=== PATIENT | female | born 1990 | race Caucasian/White ===

== ENCOUNTER 2016-11-24 16:18 | Emergency (ER) | payer MEDICAID ==
[~2016-11-24] VITALS: Ht 152.4 cm; Wt 55.8 kg
[2016-11-24 16:51] VITALS: BP_SYST 139
--- NOTE | 2016-11-24 17:59 | NUR ---
Called [facility], spoke with [employer], states that they will not send a unit out for report if the patient does choose to file a report she will have to come into [facility].
--- NOTE | 2016-11-24 18:39 | NUR ---
Patient seen by Dr. Beasley in triage.
--- NOTE | 2016-11-24 18:40 | NUR ---
Patient given written and verbal discharge instructions and verbalizes understanding. ER MD discussed with patient the results and treatment provided. Given copies of tests performed in ER. Patient in stable condition. ID arm band removed. Rx of Zofran, Motrin given. Patient educated on pain management and to follow up with PMD. Pain Scale 3/10. Opportunity for questions provided and answered.
== END 2016-11-24 18:40 | disposition home or self-care (01) ==
LOC: SED 16:18
DX: S06.9X9A Unspecified intracranial injury with loss of consciousness of unspecified duration, initial encounter (principal); J34.2 Deviated nasal septum; J45.909 Unspecified asthma, uncomplicated; Y04.0XXA Assault by unarmed brawl or fight, initial encounter; Y93.89 Activity, other specified; Y92.89 Other specified places as the place of occurrence of the external cause; Y99.8 Other external cause status
CPT/HCPCS: 70450-TC; 70486-TC; 99284

== ENCOUNTER 2017-04-26 02:40 | Emergency (ER) | payer MEDICAID ==
[~2017-04-26] VITALS: Ht 152.4 cm; Wt 54.4 kg
--- NOTE | 2017-04-26 02:55 | NUR ---
Called patient for triage and bed placement. Patient not in waiting room. Admitting staff stated she notified them she would be "going outside" and would return shortly. Patient not found outside ED doorway. Will attempt again in 15 min. Admitting staff will notify ED staff design engineer when patient returns.
[2017-04-26 02:57] VITALS: BP_SYST 137
--- NOTE | 2017-04-26 03:13 | NUR ---
Placed in room 05. Side rails up. Report given to RM Zacarias.
--- NOTE | 2017-04-26 03:15 | NUR ---
Patient arrived to ED a/o x 4 with c/o left lower jaw pain. Patient states she has been having a tooth ache for the past couple days. Reports 10/ pain. C/O new onset N/V. Denies fever. Patient was seen at urgent care earlier today. Reports recieiving pain shot, unknown what med. Will continue to monitor.
--- NOTE | 2017-04-26 03:25 | NUR ---
ED MD Swartz at bedside for medical evaluation.
[2017-04-26] MEDS ORDERED: DIPHENHYDRAMINE INJ 50 MG/ML VIAL IM ONE (03:45)
[2017-04-26] MEDS ORDERED: AMOXICILLIN 500 MG CAPSULE PO ONE (03:45)
[2017-04-26] MEDS ORDERED: MORPHINE SULFATE 10 MG/ML VIAL IVP ONE (03:45)
--- NOTE | 2017-04-26 03:55 | NUR ---
Medicated per ED MD orders.
[2017-04-26] MEDS ORDERED: MORPHINE SULFATE 10 MG/ML VIAL IM ONE (04:00)
--- NOTE | 2017-04-26 04:00 | NUR ---
ED MD Flahertyek at bedside for reassessment.
[2017-04-26 04:10] VITALS: BP_SYST 133
--- NOTE | 2017-04-26 04:10 | NUR ---
Patient given written and verbal discharge instructions and verbalizes understanding. ER MD discussed with patient the results and treatment provided. Patient in stable condition. ID arm band removed. Rx of amoxicillin given. Patient educated on pain management and to follow up with PMD. Pain Scale 2/10 tolerable for patient. Opportunity for questions provided and answered.
== END 2017-04-26 04:10 | disposition home or self-care (01) ==
LOC: SED 02:40
DX: K04.7 Periapical abscess without sinus (principal); I10 Essential (primary) hypertension; J45.909 Unspecified asthma, uncomplicated
CPT/HCPCS: 96372; 99284; J1200; J2270

== ENCOUNTER 2017-07-11 08:31 | Emergency (ER) | payer MEDICAID ==
[~2017-07-11] VITALS: Ht 152.4 cm; Wt 54.4 kg
[2017-07-11 09:00] VITALS: BP_SYST 120
[2017-07-11] MEDS ORDERED: methylPREDNISolone SOD SUCC/PF 62.5 MG/ML VIAL IM ONE (10:00)
[2017-07-11 10:25] VITALS: BP_SYST 115
== END 2017-07-11 10:22 | disposition home or self-care (01) ==
LOC: SED 08:31
DX: L50.9 Urticaria, unspecified (principal); T78.40XA Allergy, unspecified, initial encounter; J45.909 Unspecified asthma, uncomplicated; X58.XXXA Exposure to other specified factors, initial encounter
CPT/HCPCS: 96372; 99283; J2930

== ENCOUNTER 2020-04-13 02:22 | Emergency (ER) | payer SELFPAY ==
[~2020-04-13] VITALS: Ht 152.4 cm; Wt 63.5 kg
[2020-04-13 02:22] VITALS: BP_SYST 123
[2020-04-13] MEDS ORDERED: DIPH-TET-PERTUS Vaccine 0.5 ML VIAL (ADACEL) I.M. ONE ×2 (03:30→03:32)
[2020-04-13 03:57] VITALS: BP_SYST 123
== END 2020-04-13 03:57 | disposition home or self-care (01) ==
LOC: SED 02:22
DX: S02.2XXA Fracture of nasal bones, initial encounter for closed fracture (principal); S01.21XA Laceration without foreign body of nose, initial encounter; Y08.89XA Assault by other specified means, initial encounter; Y93.89 Activity, other specified; Y92.89 Other specified places as the place of occurrence of the external cause; Y99.8 Other external cause status
CPT/HCPCS: 90715; 99283

== ENCOUNTER 2021-01-02 19:04 | Emergency (ER) | payer MEDICAID ==
[~2021-01-02] VITALS: Ht 152.4 cm; Wt 72.6 kg
[2021-01-02 19:15] VITALS: BP_SYST 124
[2021-01-02] MEDS ORDERED: HYDR-3917 PO (20:01)
[2021-01-02] MEDS ORDERED: IBUP-1969 PO (20:01)
[2021-01-02 20:34] VITALS: BP_SYST 124
== END 2021-01-02 20:34 | disposition home or self-care (01) ==
LOC: SED 19:04
DX: S60.221A Contusion of right hand, initial encounter (principal); J45.909 Unspecified asthma, uncomplicated; Z79.899 Other long term (current) drug therapy; W23.0XXA Caught, crushed, jammed, or pinched between moving objects, initial encounter; Y93.89 Activity, other specified; Y92.89 Other specified places as the place of occurrence of the external cause; Y99.8 Other external cause status
CPT/HCPCS: 99283